=== PATIENT | female | born 1950 ===

== ENCOUNTER 2025-01-17 06:00 | Day surgery (SDC) | payer OTHER ==
[2025-01-11 09:48] LABS: BASO % 0.5 % (0.1-1.2); EOS # 0.12 (0.04-0.54); EOS % 1.8 % (0.7-7.0); LYMPH # 1.85 (1.18-3.74); LYMPH % 27.9 % (19.3-53.1); MEAN PLATELET VOLUME 10.70 fl (9.4-12.4); MONO # 0.52 (0.24-0.82); MONO % 7.9 % (4.7-12.5); NEUT # 4.08 (1.56-6.13); NEUT % 61.6 % (34.0-71.1); RED CELL DISTRIBUTION WIDTH 13.7 % (11.6-14.4)
[2025-01-11 09:52] VITALS: BP 164/71
[2025-01-11 10:18] LABS: ALT/SGPT 27.0 U/L (12-78); AST/SGOT 13.0 U/L (15-37); BILIRUBIN TOTAL 0.67 mg/dL (0.3-1.2); BUN CREA RATIO 20.0 (7.0-25.0); CREATININE SERUM 0.59 mg/dL (0.55-1.02); GFR 99.91; GLOBULINA 3.3 G/DL (2.4-3.5); GLUCOSE FASTING 111.0 mg/dL (65-100); OSMOLALITY SERUM 285.0 MOSM/KG (275-295)
[2025-01-11 10:37] LABS: INR 0.96
[~2025-01-17] VITALS: Ht 152.4 cm; Wt 59.0 kg
[~2025-01-17 06:00] MED LIST: ALODIPINE; GLIMEPIRIDE4 M1; SYNTHROID75 MCG; XIGDUO XR 5 MG1 EAC1
== END 2025-01-17 12:35 | disposition home or self-care (01) ==
LOC: CIR.AMB 06:00
PROVIDERS: ATTEND Internal Medicine
DX: K86.2 Cyst of pancreas (principal); R93.2 Abnormal findings on diagnostic imaging of liver and biliary tract; R93.3 Abnormal findings on diagnostic imaging of other parts of digestive tract